=== PATIENT | male | born 1970 | race Caucasian/White ===

== ENCOUNTER 2016-11-27 10:30 | Emergency (ER) | payer BC ==
[2016-11-27 10:36] VITALS: TEMP 98.6
[2016-11-27] MEDS ORDERED: HYDROmorphONE/DILAUDID 2 MG TAB ONE (11:24)
[2016-11-27] MEDS ORDERED: HYDROmorphONE/DILAUDID 2 MG TAB PO ONE (11:25)
--- NOTE | 2016-11-27 11:25 | EDPHY ---
H & P Time Seen by Provider: 11/27/16 11:13 HPI/ROS: CHIEF COMPLAINT: Rectal abscess HISTORY OF PRESENT ILLNESS: This is a 46-year-old male presenting to the emergency department complaining of rectal abscess. Patient states the initial symptoms started on when he noticed a bump with some tenderness, symptoms progressively worsened over the next few days, seen by a physician on Friday was placed on clindamycin and hydrocodone no I and D needed at that time. Patient states this morning pain had increased with increased size abscess tender on palpation tender to sit, no fever chills, REVIEW OF SYSTEMS: Constitutional: No fever, no chills. Eyes: No discharge. ENT: No sore throat. Cardiovascular: No chest pain, no palpitations. Respiratory: No cough, no shortness of breath. Gastrointestinal: No abdominal pain, no vomiting. Genitourinary: No hematuria. Rectal abscess Musculoskeletal: No back pain. Skin: No rashes. Neurological: No headache. Smoking Status: Former smoker Physical Exam: General Appearance: Alert, no distress. HEENT: Pupils equal and round no pallor or injection. Mucous membranes moist. Respiratory: There are no retractions, lungs are clear to auscultation. Cardiovascular: Regular rate and rhythm. Gastrointestinal: Abdomen is soft and nontender, no masses, bowel sounds normal. Rectal exam: 3 cm x 3 cm abscess above rectum indurated. no pain on a rectal exam, no induration felt internal rectum Neurological: No focal deficits answering questions appropriately Skin: Warm and dry, no rashes. Musculoskeletal: Neck is supple nontender. Extremities: symmetrical, full range of motion. Constitutional: Initial Vital Signs Temperature (C) 37 C 11/27/16 10:34 Heart Rate 98 11/27/16 10:34 Respiratory Rate 17 11/27/16 10:34 Blood Pressure 140/75 H 11/27/16 10:34 O2 Sat (%) 95 11/27/16 10:34 O2 Delivery Mode Room Air Allergies/Adverse Reactions: No Known Allergies Allergy (Verified 11/27/16 10:34) Home Medications: Medication Instructions Recorded Clindamycin 11/27/16 Hydrocodon-Acetaminophen 5-325 11/27/16 Hydrocortisone 0.5% cream (*) 11/27/16 Medical Decision Making Procedures: Procedure: Abscess drainage. The patient's abscess was located on the anal fold above Rectum. I obtained verbal consent from the patient to drain the abscess who was informed about the risks including but not limited to the possibility of bleeding and pain. Lidocaine w/epi 10ml used. The abscess was incised with a #11 scalpel and around 15ml of purulent drainage was expressed. wound culture collected and sent I irrigated the wound and packed it. The patient tolerated the procedure well. The procedure was performed by myself. ED Course/Re-evaluation: discussed the plan of care: incision and drainage of abscess 1140: performed incision drainage of abscess, wound culture sent. patient tolerated procedure 1215: discharge home---> stable, discussed all discharge instructions with patient. patient will also follow up with his primary care provider tomorrow as per scheduled appointment for wound recheck Differential Diagnosis: other differential diagnosis considered but not limited to external hemorrhoid , necrotizing fasciitis, and cyst - Data Points Medications Given: Discontinued Medications Hydromorphone HCl (Dilaudid) 2 mg PO EDNOW ONE Stop: 11/27/16 11:26 Last Admin: 11/27/16 11:28 Dose: 2 mg Departure - Departure Disposition: Home, Routine, Self-Care Clinical Impression: Cyst, pilonidal, with abscess Condition: Good Instructions: Pilonidal Cyst (ED), Abscess (ED), Rectal Abscess (ED) Additional Instructions: 1. Continue taking the clindamycin that was prescribed to by provider on Friday , you also have a prescription for pain medicine that was given to on Friday continue taking. Can also take ibuprofen 608 100 mg every 6-8 hours 2. You can use warm compress to area as needed 3. You can change the top gauze as needed but do not remove the packing gauze. Follow up with your primary care provider tomorrow as per your scheduled appointment abscess recheck Referrals: Moses Guzman MD [Primary Care Provider] - As per Instructions
[2016-11-27 12:34] VITALS: BP 134/86; PULSE 89; RESP 18; O2SAT 98
== END 2016-11-27 12:35 | disposition home or self-care (01) ==
PROC: 0H98XZZ Drainage of Buttock Skin, External Approach (ICD-10-PCS; principal; 2016-11-27)
DX: L05.01 Pilonidal cyst with abscess (principal); Z87.891 Personal history of nicotine dependence